=== PATIENT | male | born 1955 | race Caucasian/White ===

== ENCOUNTER 2018-08-17 10:19 | Day surgery (SDC) | payer OTHER ==
[~2018-08-17 10:19] MED LIST: SUCCINYLCHOLINE CHLORIDE 100 MG/5 ML SYG IV
[2018-08-17] MEDS ORDERED: LACTATED RINGER'S 1,000 ML IV (12:08)
[2018-08-17] MEDS ORDERED: ROPIVACAINE 0.5 % 30 ML VIAL (12:16)
[2018-08-17] MEDS ORDERED: MIDAZOLAM 1 MG/ML 2 ML INJ (12:16)
[2018-08-17] MEDS ORDERED: METOCLOPRAMIDE 10 MG INJ IV (12:30)
[2018-08-17] MEDS ORDERED: ALBUTEROL 0.083% (NEB) 2.5 MG/3 ML AMP HHN (12:30)
[2018-08-17] MEDS ORDERED: FENTAnyl 50 MCG/ML VIAL IV ×2 (12:30)
[2018-08-17] MEDS ORDERED: HYDROmorphONE 1 MG/5 ML IV SYRINGE IV ×3 (12:30)
[2018-08-17] MEDS ORDERED: MEPERIDINE 25 MG INJ IV (12:30)
[2018-08-17] MEDS ORDERED: DIPHENHYDRAMINE 50 MG INJ IV (12:30)
[2018-08-17] MEDS: EPINEPHrine 1 MG/ML 30 ML INJ (14:16)
[2018-08-17] MEDS ORDERED: PROPOFOL 20 ML (15:17)
[2018-08-17] MEDS ORDERED: SUCCINYLCHOLINE CHLORIDE 100 MG/5 ML SYG IV (15:17)
[2018-08-17] MEDS ORDERED: CLINDAMYCIN 900 MG/D5W (PMX) 50 ML IVPB (15:17)
[2018-08-17] MEDS ORDERED: LIDOCAINE 100 MG SYRINGE (15:17)
[2018-08-17] MEDS ORDERED: ROCURONIUM 50 MG INJ (15:17)
[2018-08-17] MEDS ORDERED: NEOSTIGMINE 10 MG INJ (15:17)
[2018-08-17] MEDS ORDERED: GLYCOPYRROLATE 0.4 MG INJ (15:17)
[2018-08-17] MEDS: ONDANSETRON 4 MG INJ IV (15:38)
== END 2018-08-17 17:25 | disposition home or self-care (01) ==
LOC: SDS 10:19
DX: S46.011D Strain of muscle(s) and tendon(s) of the rotator cuff of right shoulder, subsequent encounter (principal); S46.211D Strain of muscle, fascia and tendon of other parts of biceps, right arm, subsequent encounter; S43.491D Other sprain of right shoulder joint, subsequent encounter; M75.41 Impingement syndrome of right shoulder; M19.011 Primary osteoarthritis, right shoulder; W19.XXXD Unspecified fall, subsequent encounter; E78.5 Hyperlipidemia, unspecified
CPT/HCPCS: 29824